=== PATIENT | female | born 1960 | race Caucasian/White ===

== ENCOUNTER 2018-06-13 06:44 | Day surgery (SDC) | payer BC ==
[~2018-06-13] VITALS: Ht 170.2 cm; Wt 78.7 kg
[2018-06-13] MEDS ORDERED: HYDCHL12.5 (07:18)
[2018-06-13] MEDS ORDERED: Lotrel 10-20 M1 EACH (07:18)
[2018-06-13] MEDS ORDERED: Omeprazole20 M1 (07:19)
[2018-06-13] MEDS ORDERED: CONEST.625 (07:19)
[2018-06-13] MEDS ORDERED: METPHE5 (07:19)
[2018-06-13] MEDS ORDERED: ATOR10 (07:19)
[2018-06-13] MEDS ORDERED: LEVSOD50 (07:20)
[2018-06-13] MEDS ORDERED: PARO2SU (07:20)
[2018-06-13] MEDS ORDERED: AZELASTINE HCL6 ML (07:21)
[2018-06-13] MEDS ORDERED: POTA10T (07:21)
== END 2018-06-13 09:05 | disposition home or self-care (01) ==
LOC: ORSCSDS 06:44
PROVIDERS: Internal Medicine Gastroenterology
PROC: 0DBH8ZX Excision of Cecum, Via Natural or Artificial Opening Endoscopic, Diagnostic (ICD-10-PCS; principal; 2018-06-13 08:00)
PROC: 0DBN8ZX Excision of Sigmoid Colon, Via Natural or Artificial Opening Endoscopic, Diagnostic (ICD-10-PCS; principal; 2018-06-13 08:00)
DX: Z12.11 Encounter for screening for malignant neoplasm of colon (principal); D12.5 Benign neoplasm of sigmoid colon; K63.5 Polyp of colon; K64.8 Other hemorrhoids; Z83.71 Family history of colonic polyps; I10 Essential (primary) hypertension; E78.00 Pure hypercholesterolemia, unspecified; E03.9 Hypothyroidism, unspecified; Z79.899 Other long term (current) drug therapy
CPT/HCPCS: 88305; J0330; J1980; J2405; J7120

== ENCOUNTER → 2019-08-18 | Outpatient (CLI) | payer BC ==
[~2019-08-18] MED LIST: ATOR10; AZELASTINE HCL6 ML; CONEST.625; HYDCHL12.5; LEVSOD50; Lotrel 10-20 M1 EACH; METPHE5; Omeprazole20 M1; PARO2SU; POTA10T
== END | disposition home or self-care (01) ==
LOC: LAB SHORT 19:26 → LAB 19:26
DX: N39.0 Urinary tract infection, site not specified (principal)
CPT/HCPCS: 87077; 87086; 87186

== ENCOUNTER → 2021-06-20 | Outpatient (CLI) | payer BC ==
[2021-06-20 18:18] LABS: Albumin, Blood 3.8 g/dL (3.4-5.0); Albumin/Globulin Ratio 1.1 (0.8-1.8); Bilirubin, Direct 0.2 mg/dL (0.0-0.3); Bilirubin, Indirect 0.6 mg/dL (0.1-0.7); Bilirubin, Total 0.8 mg/dL (0.1-1.0); Globulin, Blood 3.6 g/dL (2.2-4.0); Total Protein, Blood 7.4 g/dL (6.4-8.2)
== END | disposition home or self-care (01) ==
LOC: LAB SHORT 15:01 → LAB 15:01
PROVIDERS: Hospitalist
DX: R79.89 Other specified abnormal findings of blood chemistry (principal)
CPT/HCPCS: 80076

== ENCOUNTER → 2021-06-21 | Outpatient (CLI) | payer BC ==
[2021-06-22 08:10] LABS: HBSAG SCREEN Negative (Negative); HEP A AB, IGM Negative (Negative); HEP B CORE AB, IGM Negative (Negative); HEP C VIRUS AB <0.1 (0.0-0.9)
== END ==
LOC: LAB SHORT 17:00 → LAB 17:00
PROVIDERS: Hospitalist
DX: R94.5 Abnormal results of liver function studies (principal); Z88.5 Allergy status to narcotic agent; Z88.6 Allergy status to analgesic agent; Z88.8 Allergy status to other drugs, medicaments and biological substances
CPT/HCPCS: 80074

== ENCOUNTER → 2023-06-12 | Outpatient (CLI) | payer BC ==
[2023-06-12 20:21] LABS: Free Thyroxine 1.09 ng/dL (0.70-1.60); Thyroid Stimulating Hormone 1.61 uIU/mL (0.360-4.800)
== END | disposition home or self-care (01) ==
LOC: LAB 18:32 → LAB SHORT 18:32
PROVIDERS: Hospitalist
DX: E03.9 Hypothyroidism, unspecified (principal)
CPT/HCPCS: 84439; 84443

== ENCOUNTER → 2024-06-30 | Outpatient (CLI) | payer OTHER ==
[2024-06-30 20:14] LABS: Free Thyroxine 1.19 ng/dL (0.70-1.60)
[2024-06-30 20:15] LABS: Thyroid Stimulating Hormone 2.13 uIU/mL (0.360-4.800)
== END ==
LOC: LAB SHORT 17:49 → LAB 17:49
PROVIDERS: Hospitalist
DX: E03.9 Hypothyroidism, unspecified (principal)
CPT/HCPCS: 84439; 84443

== ENCOUNTER → 2024-07-07 | Outpatient (CLI) | payer OTHER | LOC: LAB SHORT 10:56 → LAB 10:56 | DX: K21.9 Gastro-esophageal reflux disease without esophagitis (principal) | CPT/HCPCS: 87338 ==